=== PATIENT | male | born 1995 | race Hispanic/Latino ===

== ENCOUNTER 2019-01-06 11:37 | Inpatient (IN) | payer OTHER ==
[~2019-01-06] VITALS: Ht 165.1 cm; Wt 72.3 kg
[2019-01-06 12:37] LABS: HEMATOCRIT 46.5 % (42.0-52.0); HEMOGLOBIN 15.3 g/dl (13.5-17.5); MEAN CORPUSCULAR HEMOGLOBIN 31.3 pg (27.0-33.0); MEAN CORPUSCULAR HGB CONC 32.9 g/dl (32.0-36.5); MEAN CORPUSCULAR VOLUME 95.1 fl (80.0-96.0); PLATELET COUNT, AUTOMATED 256 10^3/uL (150-450); RED BLOOD COUNT 4.89 10^6/uL (4.30-6.10); WHITE BLOOD COUNT 6.4 10^3/uL (4.0-10.0)
[2019-01-06 13:14] LABS: AMPHETAMINES LEVEL URINE NEGATIVE (NEGATIVE); BARBITURATES URINE NEGATIVE (NEGATIVE); BENZODIAZEPINES URINE NEGATIVE (NEGATIVE); CANNABINOIDS URINE NEGATIVE (NEGATIVE); COCAINE METABOLITE URINE NEGATIVE (NEGATIVE); METHADONE URINE NEGATIVE (NEGATIVE); OPIATES URINE NEGATIVE (NEGATIVE); PHENCYCLIDINE URINE NEGATIVE (NEGATIVE)
[2019-01-06 13:16] LABS: ALBUMIN 4.1 GM/DL (3.2-5.2); ALT/SGPT 37 U/L (12-78); BILIRUBIN,DIRECT 0.1 MG/DL (0.0-0.2); BILIRUBIN,TOTAL 0.7 MG/DL (0.2-1.0); BLOOD UREA NITROGEN 18 MG/DL (7-18); CALCIUM LEVEL 8.8 MG/DL (8.5-10.1); CARBON DIOXIDE LEVEL 27 MEQ/L (21-32); CHLORIDE LEVEL 106 MEQ/L (98-107); CREATININE FOR GFR 0.98 MG/DL (0.70-1.30); GLOMERULAR FILTRATION RATE > 60.0 (>60); GLUCOSE, FASTING 92 MG/DL (70-100); POTASSIUM SERUM 4.4 MEQ/L (3.5-5.1); SALICYLATE LEVEL < 1.7 MG/DL (5.0-30.0); SODIUM LEVEL 140 MEQ/L (136-145); TOTAL PROTEIN 7.6 GM/DL (6.4-8.2)
[2019-01-06 13:17] LABS: ACETAMINOPHEN LEVEL < 2.0 UG/ML (10.0-30.0); ETHYL ALCOHOL (ETHANOL) < 0.003 % (0.000-0.010)
[2019-01-06] MEDS ORDERED: traZODone 50 MG TAB PO PRN (15:30)
[2019-01-06] MEDS ORDERED: OLANZapine ORAL DISINTEGRATING TAB 5MG PO PRN (15:30)
[2019-01-06] MEDS ORDERED: MOM 30ML SUSPENSION UDC PO PRN (15:30)
[2019-01-06] MEDS ORDERED: ACETAMINOPHEN TAB 650MG DOSE (2X325MG) PO PRN (15:30)
[2019-01-06 20:01] VITALS: BP 125/76
[2019-01-07 06:16] VITALS: BP 130/76
--- NOTE | 2019-01-07 12:54 | MHHPEPDOC ---
General Date Of Admission: Jan 06, 2019 Legal Status: 9.39 Chief Complaint "I'm not suicidal." History of Present Illness HISTORY OF THE PRESENT ILLNESS: Patient is a 23 -year-old Irish, AD, male, with no previous psych history who sent from [facility] after seen as walk-in endorsing things that related to SI but not fully endorsing, giving valuable possessions away (TV, "red flag"), fear people always watching him causing him to check his [facility], car while diving checking mirrors constantly worried someone watching him), and insomnia just wanting to sleep and not wake up since he found his roommate in the [facility] closet in their room after the roommate committed suicide 8days ago. Only endorsed minor anxiety symptoms relating to work stressors prior to finding roommate. Per ED pt appeared paranoid and suspicious and checked his bed, plastic chair, and constantly looking a his U room window due to belief people could see him there. Pt adamently denied that he was suicidal but did admit to giving his belongs away for no real reason. He was guarded in the ED. Psychiatric Review of Systems Depression (2 or more weeks): insomnia/hypersomnia (insomnia), suicidal thoughts Psychosis: paranoia PTSD: history of trauma (recent trauma 8d prior), nightmares and flashbacks, intrusive memories, hypervigilance, avoidance of triggers, mood fluctuations Anxiety: situational anxiety, stressor related anxiety Anxiety/ 6 months or more of: restlessness, keyed up, difficulty concentrating, irritability, sleep disturbance Past Psychiatric History Previous Psychiatric Diagnosis: denies Previous Psychiatric Admissions: denies Suicide Attempts: denies Psychiatric Follow-up: denies Psychiatric medications: denies Past Medical History Medical Problems denies Head Injury: No Seizures: No Hospitalizations: No Surgeries: No Family Medical/Psychiatric HX Medical Problems noncontributory Psychiatric Disorders: No Addiction: No Suicide Attemps/Completions: No Addiction History denies Social History Childhood: born and raised in [place], 2 parent home never marred, father 2016, mother remarried, oldest of 3 siblings, "rough childhood" as exposed to a lot of of drugs, saw someone murdered growing up in [place] Abuse/Trauma:found roommate in [facility] of their room after roommate committed suicide 8 days ago Current Living Situation: [facility] Education: high school grad Employment: [employer], [employer], [employer] Social Support: mother Legal: denies Marital: single, never , no kids Mental Status Examination General Appearance: well groomed, appears stated age, hospital scubs/clothing Build: average Demeanor: average Eye Contact: average Activity: average, anxious Behavior: cooperative Speech: clear, spontaneous, reg/rate,rhythm,volume Mood: euthymic, anxious Mood "scared" Affect: full, appropriate, congruent, anxious Thought Process: logical/linear (Knows that what he's thinking and feeling isn't real), associative ("evil spirits" " space"), intact Thought Content (Delusions): denies SI, HI, AVH, paranoia Thought Content (Other): none reported, preoccupied, obsessional, appears paranoid Thought Content (Aggressive): none reported Perception (Hallucinations): none reported Perception (Other): none reported Cognition (Impairment of): none reported Cognition(Intelligence Est.): average Oriented: Awake, Alert, Oriented times three Insight: fair Judgment: Fair Psychosis: Associations Diagnoses Acute stress reaction anxiety d/o unspecified. A-FIB/CHADSVASC A-FIB History Current/History of A-Fib/PAF?: No Assessment Pt seen and states that since he found his roommate he's been having insomnia and feeling very guarded and paranoid someone's going to get him. States he states he watches anything with space (area I have see... blind spots). St ates he doesn't believe in ghosts but believes "something supernatural" may pop up in the space. He is Irish as believes in evil spirits but no ghosts, grew up in [facility] and denies grew up with Irish cultural beliefs. States while in [place] for training there was a rumor that 3rd floor bathroom haunted and pt stated toilet flushed on it's own and believes saw shadow in the corner of his eye causing him to feel "on guard" of unseen areas which is "100x worse" after finding roommate . Endorses insomnia due to needing to check space area, hypervigilance, and when asleep will wake up with panic feelings that he logically doesn't understand why. Spoke to pt about medications and agreeable to take abilify for paranoia, anxiety, mood; seroquel for insomnia, vistaril prn anxiety. Risks/benefits discussed Denies SI/HI. Feels safe here. Initial Treatment Plan 1. Patient was admitted on a 9.39 status. 2. Complete history was obtained. 3. With patients permission, family will be contacted and database will be expanded. 4. Patients medication regimen will be reviewed and changed accordingly. 5. Patient will be provided with protected environment. 6. Patient will be treated with individual, group, and milieu therapies. 7. Patient will receive supportive psych-education. 8. Discharge planning will commence immediately. 9. Outpatient follow-up treatment will be strongly recommended. 10. The initial treatment plan will focus initially on: * Depression. * Risk for suicide. 11. abilify 5mg daily, seroquel 25mg qhs, vistaril 25mg q4hr prn anxiety ESTIMATED LENGTH OF STAY: 5-7 DAYS. TIME SPENT COUNSELING AND COORDINATING INITIAL CARE: 60 minutes. Vital Signs Vital Signs Date Time Temp Pulse Resp B/P (MAP) Pulse Ox O2 Delivery O2 Flow Rate FiO2 01/07/19 10:23 Room Air 01/07/19 06:16 99.0 95 16 130/76 (94) 01/06/19 17:39 99 Laboratory Data 24H Labs Laboratory Tests 2 01/06/19 12:02: Nucleated Red Blood Cells % (auto) 0.0, Anion Gap 7L, Glomerular Filtration Rate > 60.0, Calcium Level 8.8, Total Bilirubin 0.7, Direct Bilirubin 0.1, Aspartate Amino Transf (AST/SGOT) 26, Alanine Aminotransferase (ALT/SGPT) 37, Alkaline Phosphatase 63, Total Protein 7.6, Albumin 4.1, Albumin/Globulin Ratio 1.17, Thyroid Stimulating Hormone (TSH) 3.040, Salicylates Level < 1.7L, Urine Opiates Screen NEGATIVE, Urine Methadone Screen NEGATIVE, Acetaminophen Level < 2.0L, Urine Barbiturates Screen NEGATIVE, Urine Phencyclidine Screen NEGATIVE, Urine Amphetamines Screen NEGATIVE, Urine Benzodiazepines Screen NEGATIVE, Urine Cocaine Metabolite Screen NEGATIVE, Urine Cannabinoids Screen NEGATIVE, Ethyl Alcohol Level < 0.003 CBC/BMP Laboratory Tests 01/06/19 12:02 Medications No Active Prescriptions or Reported Meds Allergies Coded Allergies: No Known Allergies (Verified Allergy, Unknown, 01/06/19) SOCORRO ATWOOD DO Jan 07, 2019 12:45
[2019-01-07] MEDS ORDERED: hydrOXYzine 25 MG TAB PO PRN (13:00)
--- NOTE | 2019-01-07 14:29 | HPE ---
DATE OF ADMISSION: 01/06/2019 HISTORY OF THE PRESENT ILLNESS: Please refer to psychiatric history and evaluation for further details on this admission. This examination and history is intended for medical issues history, which may need treatment, follow-up or consult on this 23-year-old male. ALLERGIES: No known allergies. PRIMARY CARE PROVIDER: [facility]. 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 EtOH none. Smokes none. Recreational drug use none. PAST MEDICAL HISTORY: Negative. PAST SURGICAL HISTORY: Negative. HOME MEDICATIONS: He takes none. FAMILY HISTORY: Mother is alive ad well. Father from a diabetic coma. LABORATORY STUDIES: White count was 6.4, hemoglobin 15.3, hematocrit 46.5, platelets 256. Sodium 140, potassium 4.4, chloride 106, CO2 27, BUN 18, creatinine 0.98, TSH 3.040. Urine for toxicology was negative. REVIEW OF SYSTEMS: 11 systems review was done and was unremarkable. The patient had no complaints. Was feeling medically well. PHYSICAL EXAMINATION: 23-year-old cooperative male in no acute distress. Height 65 inchest, weight 72.3 kg, BMI 26.5, temperature 99. Blood pressure 130/76, pulse 95, respirations 16, oxygen saturation 99% on room air. Patient is alert and oriented times three. Pupils equal and react to light. Extraocular muscles intact. Cornea and sclerae are clear. Conjunctivae are normal. No facial asymmetry. Pharynx, tongue and gums are pink and moist. Tongue is midline. Neck is supple without lymphadenopathy. No thyromegaly. No goiter. Carotids are 2+ without bruit. Chest clear to auscultation without wheeze or retraction. Heart is regular. Abdomen is benign. Bowel sounds are positive. /rectal not done. Extremities no equal strength, full range of motion. No cyanosis, clubbing or edema. Peripheral pulses equal and palpable bilaterally. Skin is warm and dry. IMPRESSION/PLAN: 1. Psychiatric plan per psychiatry. 2. Deep vein thrombosis (DVT) prophylaxis. Patient up with early ambulation. 3. No acute medical issues.
[2019-01-07 15:32] VITALS: BP 120/61
[2019-01-07] MEDS: QUEtiapine FUMARATE 25 MG TAB PO SCH (21:05)
[2019-01-08 06:52] VITALS: BP 130/71
--- NOTE | 2019-01-08 13:19 | MHIPNPDOC ---
[facility] Progress Note Progress Note DATE OF SERVICE: 01/08/19 HISTORY: Patient is a 23 -year-old Citizen Of [place], AD, male, with no previous psych history who sent from [facility] after seen as walk-in endorsing things that related to SI but not fully endorsing, giving valuable possessions away (TV, "red flag"), fear people always watching him causing him to check his [facility], car while diving checking mirrors constantly worried someone watching him), and insomnia just wanting to sleep and not wake up since he [facility] room after the roommate committed suicide 8days ago. Only endorsed minor anxiety symptoms relating to work stressors prior to finding roommate. Per ED pt appeared paranoid and suspicious and checked his bed, plastic chair, and constantly looking a his [facility] room window due to belief people could see him there. Pt adamently denied that he was suicidal but did admit to giving his belongs away for no real reason. He was guarded in the ED. Pt seen and states that since he found his roommate he's been having insomnia and feeling very guarded and paranoid someone's going to get him. States he states he watches anything with space (area I have see... blind spots). States he doesn't believe in ghosts but believes "something supernatural" may pop up in the space. He is Citizen [place] as believes in evil spirits but no ghosts, grew up in [facility] and denies grew up with [place] cultural beliefs. States while in [employer] for training there was a rumor that 3rd floor bathroom haunted and pt stated toilet flushed on it's own and believes saw shadow in the corner of his eye causing him to feel "on guard" of unseen areas which is "100x worse" after finding roommate . Endorses insomnia due to needing to check space area, hypervigilance, and when asleep will wake up with panic feelings that he logically doesn't understand why. Spoke to pt about medications and agreeable to take abilify for paranoia, anxiety, mood; seroquel for insomnia, vistaril prn anxiety. Risks/benefits discussed Denies SI/HI. Feels safe here. VITAL SIGNS: See below. NEW TEST RESULTS: See below. CURRENT MEDICATIONS: See below. MENTAL STATUS EXAMINATION: General Appearance: well groomed, appears stated age, hospital scrubs/clothing Build: average Demeanor: average Eye Contact: average Activity: average, anxious Behavior: cooperative Speech: clear, spontaneous, reg/rate,rhythm,volume Mood: euthymic Mood "all better" Affect: full, appropriate, congruent Thought Process: logical/linear, intact; illongical regarding medication response. Thought Content (Delusions): denies SI, HI, AVH, paranoia Thought Content (Other): none reported, preoccupied, obsessional, appears paranoid Thought Content (Aggressive): none reported Perception (Hallucinations): none reported Perception (Other): none reported Cognition (Impairment of): none reported Cognition(Intelligence Est.): average Oriented: Awake, Alert, Oriented times three Insight: fair Judgment: Fair Psychosis: Associations DIAGNOSES: Acute stress reaction anxiety d/o unspecified. ASSESSMENT:Pt seen and states he feels all better and is no longer having paranoia or hypervigilance. States he took his medication yesterday and to lerated it well but doesn't believe that the reason he feels better is due to the medication and believes he can stop it and be fine with no symptoms. He has very poor insight and judgment regarding med noncompliance. States he slept well last night. He is attending groups and finding them helpful. Pt may be still having symptoms of paranoia that he's unwilling to endorse due to desire to go home. He denies SI/HI, hallucinations, delusions. Pt feels safe here. MANAGEMENT PLAN: continue plan medications: abilify 5mg daily seroquel 25mg qhs vistaril 25mg q4hr prn anxiety TIME SPENT: 30 minutes. Vital Signs Vital Signs Date Time Temp Pulse Resp B/P (MAP) Pulse Ox O2 Delivery O2 Flow Rate FiO2 01/08/19 06:52 96.3 65 18 130/71 (90) 01/07/19 10:23 Room Air 01/06/19 17:39 99 Current Medications Current Medications Medications (Trade) Dose Ordered Sig/Yeni Route PRN Reason Start Time Stop Time Status Last Admin Dose Admin Acetaminophen (Tylenol Tab) 650 mg Q6HP PRN PO HEADACHE or DISCOMFORT 01/06/19 15:30 Aripiprazole (AbiLIFY) 5 mg DAILY PO 01/08/19 09:00 01/08/19 09:29 Home Med (Med Rec Complete!) ASDIRECTED XX 01/06/19 16:30 01/06/19 16:27 DC Hydroxyzine HCl (Atarax) 25 mg Q4HP PRN PO ANXIETY/AGITATION 01/07/19 13:00 Magnesium Hydroxide (Milk Of Magnesia) 30 ml DAILYPRN PRN PO CONSTIPATION 01/06/19 15:30 Olanzapine (ZyPREXA ZYDIS) 5 mg Q4HP PRN PO AGITATION 01/06/19 15:30 Quetiapine Fumarate (SEROquel) 25 mg QHS PO 01/07/19 21:00 01/07/19 21:05 Trazodone HCl (Desyrel) 50 mg QHSP PRN PO INSOMNIA 01/06/19 15:30 01/06/19 23:23 Allergies Coded Allergies: No Known Allergies (Verified Allergy, Unknown, 01/06/19) SOCORRO ATWOOD DO Jan 08, 2019 11:13
[2019-01-08 16:19] VITALS: BP 134/83
[2019-01-08] MEDS: QUEtiapine FUMARATE 25 MG TAB PO SCH (22:07)
[2019-01-09 06:00] VITALS: BP 133/88
[2019-01-09 16:21] VITALS: BP 131/76
[2019-01-09] MEDS: QUEtiapine FUMARATE 25 MG TAB PO SCH (20:03)
[2019-01-10 05:55] VITALS: BP 141/65
--- NOTE | 2019-01-10 08:46 | MHIPN ---
DATE: 01/09/2019 VITAL SIGNS: Temperature 98.1, pulse 70, respirations 18, blood pressure 133/88. 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 Patient was giving away valuable possessions, for example, which concerned staff at [facility]. Patient found his roommate after hanging himself 8 days prior to admission. Patient reports some improvement in his mood after starting the medications from Dr. Vigil. He is tolerating the medication well. He does not believe in ghosts but does believe in evil spirits, which appears to be a cultural issue for him. MENTAL STATUS EXAM: Patient is alert, oriented, cooperative. Grooming and hygiene appear good. Speech appears regular and spontaneous. Patient does appear somewhat anxious.Mild depression. He denies psychotic symptoms. No signs of cognitive deficits. Insight and judgment appear fair. DIAGNOSIS: Acute stress reaction. Anxiety disorder, unspecified. Depressive disorder, unspecified. PLAN: Continue present management, involve in hospital milieu. ADDY
[2019-01-10 16:09] VITALS: BP 130/78
[2019-01-10] MEDS: QUEtiapine FUMARATE 25 MG TAB PO SCH (20:42)
--- NOTE | 2019-01-11 06:13 | MHIPN ---
DATE: 01/10/2019 VITAL SIGNS: Temperature 98.2, pulse 59, respirations 16, blood pressure 141/65. CURRENT MEDICATIONS: - Abilify 5 mg daily - Seroquel 25 mg nightly - trazodone 50 mg nightly as needed HISTORY OF THE PRESENT ILLNESS: The patient states he feels fine today and today was a good day. He feels he is getting back to his old self. Appetite and sleep are reasonably good. He still admits to some paranoia, but does not want the diagnosis of schizophrenia. 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 This went well. He finds the medication helpful. He has had no further experiences with ghosts or evil spirits. He feels positive about the future. MENTAL STATUS EXAM: Patient is alert, oriented and cooperative. He is quite pleasant. Grooming and hygiene appear good. Eye contact is good. Speech is within normal limits. Anxiety is mild. No signs of depression. Not voicing any current psychotic symptoms. Cognitive functions appear intact. Insight and judgment appear good today. DIAGNOSIS: Acute stress reaction. Anxiety disorder, unspecified. Depressive disorder, unspecified. PLAN: No change in psychotropics. Continue present management. Patient to followup with Dr. Vigil in the morning.
[2019-01-11 06:39] VITALS: BP 130/69
--- NOTE | 2019-01-11 11:43 | MHIPNPDOC ---
[facility] Progress Note Progress Note DATE OF SERVICE: 01/11/19 HISTORY: Patient is a 23 -year-old Ukrainian, AD, male, with no previous psych history who sent from [facility] after seen as walk-in endorsing things that related to SI but not fully endorsing, giving valuable possessions away (TV, "red flag"), fear people always watching him causing him to check his surroundings [facility], car while diving checking mirrors constantly worried someone watching him), and insomnia just wanting to sleep and not wake up since he found his roommate in [facility] in their room after the roommate committed suicide 8days ago. Only endorsed minor anxiety symptoms relating to work stressors prior to finding roommate. Per ED pt appeared paranoid and suspicious and checked his bed, plastic chair, and constantly looking a his [facility] room window due to belief people could see him there. Pt adamently denied that he was suicidal but did admit to giving his belongs away for no real reason. He was guarded in the ED. Pt seen and states that since he found his roommate he's been having insomnia and feeling very guarded and paranoid someone's going to get him. States he states he watches anything with space (area I have see... blind spots). States he doesn't believe in ghosts but believes "something supernatural" may pop up in the space. He is Ukrainian as believes in evil spirits but no ghosts, grew up in [facility] and denies grew up with Ukrainian cultural beliefs. States while in [employer] for training there was a rumor that 3rd floor bathroom haunted and pt stated toilet flushed on it's own and believes saw shadow in the corner of his eye causing him to feel "on guard" of unseen areas which is "100x worse" after finding roommate . Endorses insomnia due to needing to check space area, hypervigilance, and when asleep will wake up with panic feelings that he logically doesn't understand why. Spoke to pt about medications and agreeable to take abilify for paranoia, anxiety, mood; seroquel for insomnia, vistaril prn anxiety. Risks/benefits discussed Denies SI/HI. Feels safe here. VITAL SIGNS: See below. NEW TEST RESULTS: See below. CURRENT MEDICATIONS: See below. MENTAL STATUS EXAMINATION: General Appearance: well groomed, appears stated age, hospital scrubs/clothing Build: average Demeanor: average, asking me very inappropriate personal questions that I would not answer, will only answer questions with "I'm good, it's good, thoughts are good." Eye Contact: average Activity: average, anxious, legs shaking up and down Behavior: cooperative Speech: clear, spontaneous, reg/rate,rhythm,volume Mood: euthymic Mood "good" Affect: full, appropriate, congruent, anxious with legs shaking up and down which he states in "normal" for him Thought Process: logical/linear, intact Thought Content (Delusions): denies SI, HI, AVH, denies paranoia Thought Content (Other): none reported Thought Content (Aggressive): none reported Perception (Hallucinations): none reported Perception (Other): none reported Cognition (Impairment of): none reported Cognition(Intelligence Est.): average Oriented: Awake, Alert, Oriented times three Insight: fair Judgment: Fair Psychosis: Associations DIAGNOSES: Acute stress reaction anxiety d/o unspecified. ASSESSMENT:Pt seen and states he feels "good" and that his thoughts are "good" and that he's "good" with places, " space" he can't see. Meds are "good" with no side effects, "miracle drug." He has fair insight and judgment. States he slept well last night. He is attending groups and finding them helpful. He was very superficial when seen answer all questions with "I'm good" possibly due to wanting to go home soon. Asked me multiple inappropriate personal questions when seen which I refused to answer. He denies SI/HI, hallucinations, delusions. Pt feels safe here. MANAGEMENT PLAN: d/c tomorrow with Jasen. medications: abilify 5mg daily seroquel 25mg qhs vistaril 25mg q4hr prn anxiety TIME SPENT: 30 minutes. Vital Signs Vital Signs Date Time Temp Pulse Resp B/P (MAP) Pulse Ox O2 Delivery O2 Flow Rate FiO2 01/11/19 06:39 99.1 64 18 130/69 (89) 01/07/19 10:23 Room Air 01/06/19 17:39 99 Current Medications Current Medications Medications (Trade) Dose Ordered Sig/Yeni Route PRN Reason Start Time Stop Time Status Last Admin Dose Admin Acetaminophen (Tylenol Tab) 650 mg Q6HP PRN PO HEADACHE or DISCOMFORT 01/06/19 15:30 Aripiprazole (AbiLIFY) 5 mg DAILY PO 01/08/19 09:00 01/10/19 09:32 Home Med (Med Rec Complete!) ASDIRECTED XX 01/06/19 16:30 01/06/19 16:27 DC Hydroxyzine HCl (Atarax) 25 mg Q4HP PRN PO ANXIETY/AGITATION 01/07/19 13:00 Magnesium Hydroxide (Milk Of Magnesia) 30 ml DAILYPRN PRN PO CONSTIPATION 01/06/19 15:30 Olanzapine (ZyPREXA ZYDIS) 5 mg Q4HP PRN PO AGITATION 01/06/19 15:30 Quetiapine Fumarate (SEROquel) 25 mg QHS PO 01/07/19 21:00 01/10/19 20:42 Trazodone HCl (Desyrel) 50 mg QHSP PRN PO INSOMNIA 01/06/19 15:30 01/06/19 23:23 Allergies Coded Allergies: No Known Allergies (Verified Allergy, Unknown, 01/06/19) SOCORRO ATWOOD DO Jan 11, 2019 11:43
[2019-01-11 15:26] VITALS: BP 127/73
[2019-01-11] MEDS: QUEtiapine FUMARATE 25 MG TAB PO SCH (20:13)
[2019-01-12 06:48] VITALS: BP 99/57
[2019-01-12] MEDS ORDERED: QUET1TAB7 PO (08:57)
[2019-01-12] MEDS ORDERED: ABIL1TAB11 PO (08:57)
[2019-01-12] MEDS ORDERED: HYDR-3363 PO (08:57)
[2019-01-12] MEDS ORDERED: TRAZ-252 PO (08:57)
--- NOTE | 2019-01-12 08:58 | MHDSPDOC ---
[facility] Discharge Summary Discharge Summary DATE OF ADMISSION: Jan 06, 2019 at 15:20 DATE OF DISCHARGE: Jan 12, 2019 DISCHARGE DIAGNOSES: Acute stress reaction anxiety d/o unspecified. REASON FOR ADMISSION: Patient is a 23 -year-old [place]ian, AD, male, with no previous psych history who sent from [facility] after seen as walk-in endorsing things that related to SI but not fully endorsing, giving valuable possessions away (TV, "red flag"), fear people always watching him causing him to check his surroundings where ever he is ([facility], [facility], car while diving checking mirrors constantly worried someone watching him), and insomnia just wanting to sleep and not wake up since he [facility] his [facility] in [facility] room after the roommate committed suicide 8days ago. Only endorsed minor anxiety symptoms relating to work stressors prior to finding roommate. Per ED pt appeared paranoid and suspicious and checked his bed, plastic chair, and constantly looking a his [facility] room window due to belief people could see him there. Pt adamently denied that he was suicidal but did admit to giving his belongs away for no real reason. He was guarded in the ED. Pt seen and states that since he found his roommate he's been having insomnia and feeling very guarded and paranoid someone's going to get him. States he states he watches anything with space (area I have see... blind spots). States he doesn't believe in ghosts but believes "something supernatural" may pop up in the space. He is [place]ian as believes in evil spirits but no ghosts, grew up in [facility] and denies grew up with [place]ian cultural beliefs. States while in [employer] for training there was a rumor that 3rd floor bathroom haunted and pt stated toilet flushed on it's own and believes saw shadow in the corner of his eye causing him to feel "on guard" of unseen areas which is "100x worse" after finding roommate . Endorses insomnia due to needing to check space area, hypervigilance, and when asleep will wake up with panic feelings that he logically doesn't understand why. Spoke to pt about medications and agreeable to take abilify for paranoia, anxiety, mood; seroquel for insomnia, vistaril prn anxiety. Risks/benefits discussed Denies SI/HI. Feels safe here CONSULTANTS INVOLVED: none TREATMENT AND PROGRESS ON THE UNIT : Pt was admitted to [facility], seen for psychia tric assessment and started on abilify 5mg qhs and seroquel 25mg qhs for sleep. He was provided vistaril 25mg q6hr prn anxiety and trazodone 50mg qhs prn insomnia. Pt found his medications beneficial and tolerated them well. He attended groups daily during his stay. His symptoms improved with treatment. On day of discharge he denied depression, anxiety, insomnia, SI/HI, halluc inations, delusions. He was discharged home after Jasen meeting with follow-up at [facility]. He felt safe for discharge DISCHARGE ASSESSMENT: Pt seen and states he feels "good" and that he's looking forward to going home today with his Jasen. States again that his thoughts are "good" and that he's "good" with places he can't see and " space" he can't see. Meds are "good" with no side effects, and calls abilify a "miracle drug." He has fair-good insight and good judgment. States he slept well last night. H hawa is attending groups and finding them helpful. He denies depression, anxiety, insomnia, SI/HI, hallucinations, delusions. Pt feels safe to d/c home with his Jasen. MENTAL STATUS EXAMINATION ON DISCHARGE: General Appearance: well groomed, appears stated age, hospital scrubs/clothing Build: average Demeanor: average, "I'm good, it's good, thoughts are good." Eye Contact: average Activity: average, anxious, legs shaking up and down Behavior: cooperative Speech: clear, spontaneous, reg/rate,rhythm,volume Mood: euthymic Mood "good" Affect: full, appropriate, congruent, anxious with legs shaking up and down which he states in "normal" for him Thought Process: logical/linear, intact Thought Content (Delusions): denies SI, HI, AVH, denies paranoia Thought Content (Other): none reported Thought Content (Aggressive): none reported Perception (Hallucinations): none reported Perception (Other): none reported Cognition (Impairment of): none reported Cognition(Intelligence Est.): average Oriented: Awake, Alert, Oriented times three Insight: fair-good Judgment: good Psychosis: none reported MEDICATIONS ON DISCHARGE: abilify 5mg daily seroquel 25mg qhs vistaril 25mg q4hr prn anxiety trazodone 50mg qhs prn insomnia PLAN/FOLLOWUP ARRANGEMENTS: D/c home with [facility] with follow-up at [facility]. The amount of time spent in the coordination of care for this patient was approximately minutes. Vital Signs/I&Os Vital Signs Date Time Temp Pulse Resp B/P (MAP) Pulse Ox O2 Delivery O2 Flow Rate FiO2 01/12/19 06:48 98.1 53 12 99/57 (71) 01/07/19 10:23 Room Air 01/06/19 17:39 99 Medications No Active Prescriptions or Reported Meds Allergies Coded Allergies: No Known Allergies (Verified Allergy, Unknown, 01/06/19) SOCORRO ATWOOD DO Jan 12, 2019 08:58
== END 2019-01-12 13:45 | disposition home or self-care (01) | DRG 880 ==
LOC: M ED 11:37 → M ED INP 15:20 → M PSY 18:02
PROVIDERS: ADMIT Psychiatry & Neurology Addiction Medicine; ATTEND Psychiatry & Neurology Psychiatry
DX: F43.0 Acute stress reaction (principal); F41.9 Anxiety disorder, unspecified; F32.9 Major depressive disorder, single episode, unspecified; F43.21 Adjustment disorder with depressed mood; G47.00 Insomnia, unspecified

== ENCOUNTER 2019-07-22 12:24 | Day surgery (SDC) | payer OTHER ==
[~2019-07-22] VITALS: Ht 162.6 cm; Wt 85.3 kg
[~2019-07-22 12:24] MED LIST: ABIL1TAB11 PO; BSS IRR 500ML/OMIDRIA 4ML IRR BAG (OR ONLY) (J1097 PER ML) As Ordered ONE; CEFUROXIME 1MG/0.1ML INTRACAMERAL INJ As Ordered ONE; DUOVISC (0.50ML VISCOAT/0.55ML PROVISC) OPHTH KIT As Ordered ONE; HYDR-3363 PO; MIDAZOLAM INJ 2MG/2ML VIAL (J2250 PER 1MG) As Ordered ONE; OFLOXACIN 0.3 % (OCUFLOX) OPTH SOL 5ML OD ONE; PHENYLEPHRINE 2.5% OPHTH SOL 2ML OD ONE; POVIDONE-IODINE 5% OPHTH PREP SOL 30ML As Ordered ONE; PROPARACAINE 0.5% OPHTH SOL 15ML OD ONE; QUET1TAB7 PO; TRAZ-252 PO; TROPICAMIDE 1% OPHTH SOLN 2ML OD ONE; fentaNYL 100 MCG/2 ML INJECTION (J3010) As Ordered ONE
[2019-07-22] MEDS ORDERED: ACETYLCHOLINE OPHTH SOLN 1% 2ML (MIOCHOL-E) As Ordered ONE (15:15)
[2019-07-22 16:05] VITALS: BP 135/95
--- NOTE | 2019-07-29 23:51 | RO ---
DATE OF PROCEDURE: 07/22/2019 PREOPERATIVE DIAGNOSIS: 1. Visually significant nuclear sclerotic cataract right eye. POSTOPERATIVE DIAGNOSIS: 1. Visually significant nuclear sclerotic cataract right eye. PROCEDURE: 1. Cataract extraction with use of phacoemulsification and placement of intraocular lens, AU00T0, 14.0 D, right eye. SURGEON: Ian Davis DO LOSS CONTROL REPRESENTATIVE: None. ANESTHESIA: Local with monitored anesthesia care (MAC), with Omidria (4 mL/500 mL) mixed into irrigation solution. COMPLICATIONS: None. POSTOPERATIVE CONDITION: Stable. INDICATIONS FOR SURGERY: 1. Blurred vision affecting patients activities of daily living. DESCRIPTION OF PROCEDURE: The patient was seen in the preoperative area and properly identified. The correct operative eye was identified and marked. The patient received topical anesthetic, antibiotics, and topical dilating drops. The patient was then transferred to the operating room. The correct side was re-identified, and a time-out was performed. The eye was prepped and draped in a sterile fashion. The eyelids were isolated with Tegaderm tape, and the lids were held open with an adjustable speculum. A 1.0 mm paracentesis incision was made. Intraocular preservative-free Shugarcaine was then injected into the anterior chamber. Viscoelastic was then injected into the anterior chamber through the paracentesis. Using a 2.4 mm sharp-tipped keratome, the anterior chamber was entered via a temporal clear cornea incision. A continuous curvilinear capsulorrhexis was created with Utrata forceps. Hydrodissection was performed with balanced salt solution (BSS) on a blunt cannula until the nucleus was able to rotate freely. The crystalline lens was phacoemulsified and aspirated. Irrigation/aspiration was used to remove the cortical material. Cohesive viscoelastic was placed into the capsular bag to deepen it. The implant was placed into the capsular bag and allowed to unfold. Placement was confirmed by visualizing the anterior capsulorrhexis. Irrigation/aspiration was used to remove the viscoelastic. The clear corneal incision was hydrated with BSS on a blunt cannula. The lens was well positioned. The incisions were then tested for leaks and found to be negative. Cefuroxime was injected into the anterior chamber. The eye was then palpated for appropriate pressure and adjusted accordingly with BSS. The eyelid speculum was then carefully removed. A shield was placed over the eye. The patient tolerated the procedure well and was discharged to the recovery unit in a stable condition.
== END 2019-07-22 16:30 | disposition home or self-care (01) ==
LOC: M SDC 12:24
PROVIDERS: ATTEND Ophthalmology
DX: H26.101 Unspecified traumatic cataract, right eye (principal); H25.031 Anterior subcapsular polar age-related cataract, right eye
CPT/HCPCS: 66984; 80053; 82550; 82553; 84484; 85025; 93041; 94760; 99284; J1097; J2250; J3010

== ENCOUNTER 2019-07-22 17:43 | Emergency (ER) | payer OTHER ==
[~2019-07-22 17:43] MED LIST changes: -BSS IRR 500ML/OMIDRIA 4ML IRR BAG (OR ONLY) (J1097 PER ML) As Ordered ONE; -CEFUROXIME 1MG/0.1ML INTRACAMERAL INJ As Ordered ONE; -DUOVISC (0.50ML VISCOAT/0.55ML PROVISC) OPHTH KIT As Ordered ONE; -MIDAZOLAM INJ 2MG/2ML VIAL (J2250 PER 1MG) As Ordered ONE; -OFLOXACIN 0.3 % (OCUFLOX) OPTH SOL 5ML OD ONE; -PHENYLEPHRINE 2.5% OPHTH SOL 2ML OD ONE; -POVIDONE-IODINE 5% OPHTH PREP SOL 30ML As Ordered ONE; -PROPARACAINE 0.5% OPHTH SOL 15ML OD ONE; -TROPICAMIDE 1% OPHTH SOLN 2ML OD ONE; -fentaNYL 100 MCG/2 ML INJECTION (J3010) As Ordered ONE
[2019-07-22] MEDS ORDERED: NS 1,000 ML IV ONE (18:30)
[2019-07-22 18:43] LABS: BASO % 0.6 % (0.0-1.0); EOS # 0.1 10^3/uL (0.0-0.5); EOS % 1.5 % (0.0-3.0); HEMOGLOBIN 14.9 g/dl (13.5-17.5); LYMPH # 1.5 10^3/uL (1.5-5.0); LYMPH % 20.3 % (24.0-44.0); MEAN CORPUSCULAR HEMOGLOBIN 30.4 pg (27.0-33.0); MEAN CORPUSCULAR HGB CONC 33.1 g/dl (32.0-36.5); MEAN CORPUSCULAR VOLUME 91.8 fl (80.0-96.0); MONO # 0.6 10^3/uL (0.0-0.8); MONO % 8.7 % (0.0-5.0); NEUTROPHILS % 68.5 % (36.0-66.0); PLATELET COUNT, AUTOMATED 234 10^3/uL (150-450); WHITE BLOOD COUNT 7.2 10^3/uL (4.0-10.0)
[2019-07-22 19:12] LABS: ALBUMIN 3.9 GM/DL (3.2-5.2); ALT/SGPT 72 U/L (12-78); BILIRUBIN,TOTAL 1.2 MG/DL (0.2-1.0); BLOOD UREA NITROGEN 12 MG/DL (7-18); CARBON DIOXIDE LEVEL 29 MEQ/L (21-32); CHLORIDE LEVEL 104 MEQ/L (98-107); CK-MB VALUE MASS < 1.0 NG/ML (<3.6); CPK CREATINE PHOSPHOKINASE 180 U/L (39-308); CREATININE FOR GFR 1.09 MG/DL (0.70-1.30); GLOMERULAR FILTRATION RATE > 60.0 (>60); GLUCOSE, FASTING 93 MG/DL (70-100); MB/CK RELATIVE INDEX 0.56 (< OR =4); SODIUM LEVEL 143 MEQ/L (136-145); TOTAL PROTEIN 7.4 GM/DL (6.4-8.2); TROPONIN I < 0.02 NG/ML (< 0.10)
[2019-07-22 20:45] VITALS: BP 116/73
[2019-07-22] MEDS ORDERED: hydrOXYzine 50 MG TAB PO STA (20:58)
== END 2019-07-22 21:24 | disposition home or self-care (01) ==
LOC: M ED 17:43
DX: R06.4 Hyperventilation (principal); Z79.899 Other long term (current) drug therapy

== ENCOUNTER 2019-08-12 17:33 | Emergency (ER) | payer OTHER ==
[~2019-08-12] VITALS: Ht 162.6 cm; Wt 86.4 kg
[2019-08-12] MEDS ORDERED: QUET1TAB7 PO (17:55)
[2019-08-12] MEDS ORDERED: TRAZ-252 PO (17:55)
[2019-08-12] MEDS ORDERED: ABIL1TAB11 PO (17:55)
[2019-08-12] MEDS ORDERED: HYDR-3363 PO (17:56)
[2019-08-12 19:58] LABS: HEMATOCRIT 47.2 % (42.0-52.0); HEMOGLOBIN 15.5 g/dl (13.5-17.5); MEAN CORPUSCULAR HEMOGLOBIN 29.9 pg (27.0-33.0); MEAN CORPUSCULAR HGB CONC 32.8 g/dl (32.0-36.5); MEAN CORPUSCULAR VOLUME 90.9 fl (80.0-96.0); PLATELET COUNT, AUTOMATED 266 10^3/uL (150-450); RED BLOOD COUNT 5.19 10^6/uL (4.30-6.10); WHITE BLOOD COUNT 7.6 10^3/uL (4.0-10.0)
[2019-08-12 20:15] LABS: AMPHETAMINES LEVEL URINE NEGATIVE (NEGATIVE); BARBITURATES URINE NEGATIVE (NEGATIVE); BENZODIAZEPINES URINE NEGATIVE (NEGATIVE); CANNABINOIDS URINE NEGATIVE (NEGATIVE); COCAINE METABOLITE URINE NEGATIVE (NEGATIVE); METHADONE URINE NEGATIVE (NEGATIVE); OPIATES URINE NEGATIVE (NEGATIVE); PHENCYCLIDINE URINE NEGATIVE (NEGATIVE)
[2019-08-12 20:38] LABS: ACETAMINOPHEN LEVEL < 2.0 UG/ML (10.0-30.0); ALBUMIN 4.2 GM/DL (3.2-5.2); ALT/SGPT 66 U/L (12-78); BILIRUBIN,DIRECT 0.2 MG/DL (0.0-0.2); BILIRUBIN,TOTAL 0.7 MG/DL (0.2-1.0); BLOOD UREA NITROGEN 14 MG/DL (7-18); CALCIUM LEVEL 9.3 MG/DL (8.5-10.1); CARBON DIOXIDE LEVEL 29 MEQ/L (21-32); CHLORIDE LEVEL 106 MEQ/L (98-107); ETHYL ALCOHOL (ETHANOL) < 0.003 % (0.000-0.010); GLOMERULAR FILTRATION RATE > 60.0 (>60); GLUCOSE, FASTING 91 MG/DL (70-100); POTASSIUM SERUM 4.1 MEQ/L (3.5-5.1); SALICYLATE LEVEL < 1.7 MG/DL (5.0-30.0); SODIUM LEVEL 138 MEQ/L (136-145); TOTAL PROTEIN 8.1 GM/DL (6.4-8.2)
[2019-08-12 21:22] VITALS: BP 115/69
== END 2019-08-12 21:27 | disposition home or self-care (01) ==
LOC: M ED 17:33
DX: F91.9 Conduct disorder, unspecified (principal); F41.9 Anxiety disorder, unspecified; G47.00 Insomnia, unspecified; Z79.899 Other long term (current) drug therapy
CPT/HCPCS: 36415; 80048; 80076; 80307; 84443; 85027; 99284; G0480

== ENCOUNTER → 2019-10-27 | Outpatient (CLI) | payer OTHER ==
--- NOTE | 2019-11-24 09:52 | REP ---
RIGHT FOOT SERIES CLINICAL: Pain. TECHNIQUE: AP, lateral, bilateral oblique views of the right foot. FINDINGS: No acute fracture or dislocation. Skeletal structures, joint spaces, and surrounding soft tissues appear normal. No subcutaneous emphysema or foreign body. IMPRESSION: Normal right foot series. No acute fracture or dislocation. MTDD
== END ==
LOC: M LRY 10:00
PROVIDERS: ATTEND Physician Assistant
DX: M79.671 Pain in right foot (principal)